=== PATIENT | female | born 1940 | race Two or more races ===

== ENCOUNTER → 2022-09-15 09:15 | Outpatient (BNVA) | payer MEDICARE, SELFPAY | PROVIDERS: PCP Family Medicine; Visit Provider Student in an Organized Health Care Education/Training Program | DX: M06.9 Rheumatoid arthritis, unspecified (principal); Z13.820 Encounter for screening for osteoporosis | CPT/HCPCS: 99202 ==

== ENCOUNTER → 2022-11-29 09:31 | Outpatient (BNVA) | payer MEDICARE, SELFPAY | PROVIDERS: PCP Family Medicine; Visit Provider Student in an Organized Health Care Education/Training Program | DX: M06.00 Rheumatoid arthritis without rheumatoid factor, unspecified site (principal); Z79.631 Long term (current) use of antimetabolite agent | CPT/HCPCS: 99212 ==

== ENCOUNTER 2023-02-14 10:59 | Outpatient (AMB) | payer MEDICARE, MEDICAID, SELFPAY ==
[2023-02-14 11:17] VITALS: BP 102/54; PULSE 62; TEMP 35.9; O2SAT 98
--- NOTE | 2023-02-14 11:17 | A.OFFVIS_ITS ---
Intake Vital Signs 02/14/23 11:17 Height 5 ft 7 in BMI Reason not done Patient refused/unable BP 102/54 L Blood Pressure Location Rt brachial Position Sitting Pulse 62 Pulse Source Pulse Oximeter Temp 96.6 F L Temp Source Skin Pulse Oximetry (%) 98 Comment pt states weight is 138-140lbs Intake Visit Reasons: RA Intake Note: Pt seen today for RA follow up. Not taking MTX for approx 3months she states she gets UTI's. Reports she was in the hospital for a week at [facility]. Neck and shoulders still sore General Foundry Worker Required: No Accompanied by: Self / Same As Patient Allergies aspirin Allergy (Intermediate, Verified 02/14/23 11:22) Hives Medication List - Last Reconciled 02/14/23 by Vinnie Purcell MD acetaminophen (Tylenol Extra Strength) 500 mg PO BID PRN amlodipine 5 mg PO DAILY atenolol 25 mg PO DAILY atorvastatin 40 mg PO DAILY calcitriol 0.25 mcg PO DAILY celecoxib (Celebrex) 100 mg PO BID cholecalciferol (vitamin D3) 25 mcg PO DAILY diclofenac sodium 1% grams topical QID fluticasone propionate 50 mcg/actuation sprays intranasal levothyroxine 50 mcg PO DAILY lisinopril 10 mg PO DAILY magnesium oxide 400 mg PO DAILY tizanidine 1 mg PO TID PRN vitamin B complex (B Complex-Vitamin B12 tablet) 1 tab PO DAILY HPI HPI Comments History of Present Illness Details 82-year-old female with seronegative RA returns for follow-up. Mentions that she stopped methotrexate about 2 months ago as she felt that she was having recurrent UTIs when she was taking it. She continues to have pain in her shoulders, hands. Initial history: 82-year-old female presents for rheumatoid arthritis evaluation. Her previous school bus driver/custodian left the practice. Patient states she was just discharged from [facility] due to UTI. 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 She has had bilateral knee replacements around 6 years ago. She also had bilateral hip replacements for years ago. Per patient and her daughter she had had multiple revisions of her right hip replacement and eventually the hardware was taken out. Per patient's daughter, the surgeon told them the bones are frail Today patient is complaining of bilateral shoulder pain and weakness as well as neck pain and bilateral jaw pain. She has bilateral jaw pain when she has to open her mouth to have a large bite. She takes Celebrex 100 mg Twice daily. She states that she does not like how she feels when she takes methotrexate. She took it for a few weeks and stopped and feels that the pain is worse when she stopped. From Dr. Cardenas's and Dr. Green notes: 81-year-old female with seronegative rheumatoid arthritis.?? Patient states she did not like the Enbrel as it caused her to have constipation.? She also did not like leflunomide.? She would like to go back on the methotrexate.?? Patient previously stated that she could not tolerate methotrexate.? She took it for 3 months.? She gained weight but she states today she can deal with the weight gain. She got over a UTI and she is on antibiotics.? Previous visit 11/01/2021? States she has plaque psoriasis.? Psoriasis is on and off.? Diagnosis was never confirmed by obstetrics nurse.? She states that her hairdresser told her that. Patient complains of pain in the neck.? This has been going on for years on and off.? Is getting worse it radiates to the shoulders mostly on the left side.? No numbness.? Occasional tingling? She used to be on methotrexate and Plaquenil as well as biologics.? She was f ollowing with Dr. Sosa norman. Patient had intense inflammatory finding when she 1st presented in summer, she also had profound weight loss treatment has been a challenge.?? Inadequate response to methotrexate and leflunomide. : Enbrel but he was stopped as she thought it caused diarrhea Humira for 10 weeks without subjective or objective improvement.? Started Xeljanz but stopped about 5 days, unclear why she did this She thinks Celebrex caused her hair to curl.? 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 Osteoporosis Rheumatoid arthritis Screening for viral disease Surgical History Hx of bilateral hip replacements Hx of total knee replacement Family History Father Myocardial infarct Social History Household Members: Children Household Members Other:: Son Alcohol intake: never Patient Tobacco Use Status: Never used Tobacco Review of Systems ENT Reports neck pain Resp Reports no additional complaints Musc Reports arthralgias, Reports neck pain and Reports stiffness Physical Exam Vital Signs: Last Vital Signs Temp 96.6 F L 02/14/23 11:17 Pulse 62 02/14/23 11:17 BP 102/54 L 02/14/23 11:17 Pulse Ox 98 02/14/23 11:17 Const General: cooperative, healthy appearing and comfortable Nutritional Appearance: average body habitus Orientation/consciousness: patient oriented x3 Limitations: wheelchair HEENT Head: Yes normocephalic and Yes atraumatic Mouth: moist mucous membranes Resp Effort & Inspection: normal respiratory effort and able to speak in complete sentences Neuro General: patient oriented x3 Extrem Other: Significantly limited wrist extension bilaterally Bilateral wrist swelling without tenderness No MCP tenderness or swelling bilaterally Negative MCP squeeze test bilaterally Osteoarthritic changes of both hands with prominent Heberden's nodes Normal range of motion of both elbows with no pain Significantly limited range of motion of both shoulders No knee, ankle or foot swelling warmth or tenderness bilaterally Assessment & Plan Assessment & Plan (1) Rheumatoid arthritis: Comment: Seronegative arthritis started 2014 was told she has PSO by chairperson anesthesiology, Never confirmed by obstetrics nurse knee synovial fluid inflammatory 2014, negative serology, elevated inflammatory markers Methotrexate and leflunomide ineffective Per patient Enbrel caused diarrhea and constipation Took Xeljanz for 5 days and stopped it on her own unclear why she did that Failed Humira MTX restarted at 12.5 mg daily 09/21 effective, stopped due to recurrent UTIs Code(s): M06.9 - Rheumatoid arthritis, unspecified Plan: This is an 82-year-old female with seronegative rheumatoid arthritis who presents for follow-up. Patient self discontinued methotrexate due to recurrent UTIs. Discussed risks and benefits of hydroxychloroquine. Patient mentions that she has history of macular degeneration and she has a follow-up appointment with her vision impaired teacher next month. Advised patient to follow-up with her vision impaired teacher and discuss the possibility of using hydroxychloroquine. Patient agreed to do so. If patient vision impaired teacher agrees to start hydroxychloroquine will plan to start hydroxychloroquine 300 mg daily Follow-up in 3 months Plan I spent 17 minutes reviewing patient's chart, evaluating patient, placing order s, counseling patient and documenting in the chart Orders: Referrals Ophthalmology Referral [id number] - Other long-term (current) drug therapy Coding Level of Care Code Est Pt Level 3 (98605) Diagnoses Rheumatoid arthritis M06.9
== END 2023-02-14 12:01 | disposition home or self-care (01) ==
PROVIDERS: PCP Family Medicine; Visit Provider Student in an Organized Health Care Education/Training Program
DX: M06.9 Rheumatoid arthritis, unspecified (principal)
CPT/HCPCS: 99213

== ENCOUNTER → 2023-02-14 10:59 | Outpatient (BNVA) | payer MEDICARE, MEDICAID, SELFPAY | PROVIDERS: PCP Family Medicine; Visit Provider Student in an Organized Health Care Education/Training Program | DX: M06.9 Rheumatoid arthritis, unspecified (principal) | CPT/HCPCS: 99212 ==

== ENCOUNTER 2023-05-02 10:49 | Outpatient (AMB) | payer MEDICARE, MEDICAID, SELFPAY ==
[2023-05-02 10:50] VITALS: BP 122/70; TEMP 36.2
--- NOTE | 2023-05-02 10:50 | MHC.OFFVIS ---
Intake Vital Signs 05/02/23 10:50 Height 5 ft 7 in BMI Reason not done Patient refused/unable BP 122/70 Blood Pressure Location Rt brachial Position Sitting Temp 97.2 F Temp Source Skin Comment pt in wheelchair Intake Visit Reasons: RA Intake Note: Pt seen today for RA follow up. 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 Roller Required: No Accompanied by: Self / Same As Patient Allergies aspirin Allergy (Intermediate, Verified 05/02/23 10:58) Hives Medication List - Last Reconciled 05/02/23 by Vinnie Purcell MD acetaminophen (Tylenol Extra Strength) 500 mg PO BID PRN amlodipine 5 mg PO DAILY atenolol 25 mg PO DAILY atorvastatin 40 mg PO DAILY calcitriol 0.25 mcg PO DAILY celecoxib (Celebrex) 100 mg PO BID cholecalciferol (vitamin D3) 25 mcg PO DAILY diclofenac sodium 1% grams topical QID fluticasone propionate 50 mcg/actuation sprays intranasal levothyroxine 50 mcg PO DAILY lisinopril 10 mg PO DAILY magnesium oxide 400 mg PO DAILY tizanidine 1 mg PO TID PRN vitamin B complex (B Complex-Vitamin B12 tablet) 1 tab PO DAILY HPI HPI Comments History of Present Illness Details 82-year-old female with seronegative RA returns for follow-up. Patient took minocycline for approximately 2 and half months without much improvement in her joint pain. She also developed a UTI. While taking it. She started methotrexate 5 tabs once weekly 5 weeks ago with improvement in her joint pain and swelling. Denied any recent UTIs. She would like to some physical therapy for her neck. Initial history: 82-year-old female presents for rheumatoid arthritis evaluation. Her previous sales communications manager left the practice. Patient states she was just discharged from [facility] due to UTI. 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 She has had bilateral knee replacements around 6 years ago. She also had bilateral hip replacements for years ago. Per patient and her daughter she had had multiple revisions of her right hip replacement and eventually the hardware was taken out. Per patient's daughter, the surgeon told them the bones are frail Today patient is complaining of bilateral shoulder pain and weakness as well as neck pain and bilateral jaw pain. She has bilateral jaw pain when she has to open her mouth to have a large bite. She takes Celebrex 100 mg Twice daily. She states that she does not like how she feels when she takes methotrexate. She took it for a few weeks and stopped and feels that the pain is worse when she stopped. From Dr. Cardenas's and Dr. Green notes: 81-year-old female with seronegative rheumatoid arthritis.?? Patient states she did not like the Enbrel as it caused her to have constipation.? She also did not like leflunomide.? She would like to go back on the methotrexate.?? Patient previously stated that she could not tolerate methotrexate.? She took it for 3 months.? She gained weight but she states today she can deal with the weight gain. She got over a UTI and she is on antibiotics.? Previous visit 11/01/2021? States she has plaque psoriasis.? Psoriasis is on and off.? Diagnosis was never confirmed by claims analyst.? She states that her hairdresser told her that. Patient complains of pain in the neck.? This has been going on for years on and off.? Is getting worse it radiates to the shoulders mostly on the left side.? No numbness.? Occasional tingling? She used to be on methotrexate and Plaquenil as well as biologics.? She was following with Dr. Sosa norman. Patient had intense inflammatory finding when she 1st presented in summer, she also had profound weight loss treatment has been a challenge.?? Inadequate response to methotrexate and leflunomide. : Enbrel but he was stopped as she thought it caused diarrhea Humira for 10 weeks without subjective or objective improvement.? Started Xeljanz but stopped about 5 days, unclear why she did this She thinks Celebrex caused her hair to curl.? Not taking Plaquenil ineffective [facility] Medical History Macular degeneration Osteoporosis Encounter for testing for latent tuberculosis infection Screening for viral disease On halfway drug therapy Inflammatory polyarthropathy Rheumatoid arthritis Surgical History Hx of total knee replacement Hx of bilateral hip replacements Family History Father Myocardial infarct Social History Household Members: Children Household Members Other:: Son Alcohol intake: never Patient Tobacco Use Status: Never used Tobacco Review of Systems Musc Denies arthralgias and Denies joint swelling Physical Exam Vital Signs: Last Vital Signs Temp 97.2 F 05/02/23 10:50 BP 122/70 05/02/23 10:50 Const General: cooperative, healthy appearing and comfortable Nutritional Appearance: average body habitus Orientation/consciousness: patient oriented x3 Limitations: wheelchair HEENT Head: Yes normocephalic and Yes atraumatic Mouth: moist mucous membranes Resp Effort & Inspection: normal respiratory effort and able to speak in complete sentences Neuro General: patient oriented x3 Extrem Other: No wrist swelling bilateral today Mild right wrist tenderness No MCP tenderness or swelling bilaterally Negative MCP squeeze test bilaterally Osteoarthritic changes of both hands with prominent Heberden's nodes Normal range of motion of both elbows with no pain Significantly limited range of motion of both shoulders No knee, ankle or foot swelling warmth or tenderness bilaterally Assessment & Plan Assessment & Plan (1) Rheumatoid arthritis: Comment: Seronegative arthritis started 2014 was told she has PSO by hair spinning machine operator, Never confirmed by claims analyst knee synovial fluid inflammatory 2014, negative serology, elevated inflammatory markers Methotrexate and leflunomide ineffective Per patient Enbrel caused diarrhea and constipation Took Xeljanz for 5 days and stopped it on her own unclear why she did that Failed Humira Mnocycline 12/22-02/21 not effective & stopped due to UTI MTX restarted at 12.5 mg daily 09/21 effective, stopped due to recurrent UTIs restarted 03/24 effective Code(s): M06.9 - Rheumatoid arthritis, unspecified Plan: This is an 82-year-old female with seronegative rheumatoid arthritis who presents for follow-up. Patient restarted methotrexate 12.5 mg weekly 5 weeks ago with improved joint pain and swelling. On exam today she has 1 tender joint. Advanced methotrexate to 20 mg once weekly split dose plus folic acid 1 mg daily Labs in 1 month. Follow-up in 3 months (2) Degenerative cervical disc: Code(s): M50.30 - Other cervical disc degeneration, unspecified cervical region Plan: Referred to PT (3) Immunization counseling: Code(s): Z71.85 - Encounter for immunization safety counseling Plan: Discussed ACR vaccination guidelines for all [place] with autoimmune rheumatic disease. Patient does want to get any vaccines. Advised patient to try to maintain social distancing as much as possible and wear a mask in crowded areas the coming few months as the number of respiratory infections is on the rise Plan I spent 26 minutes reviewing patient's chart, evaluating patient, placing orders, counseling patient and documenting in the chart Orders: Orders PT Evaluation and Treatment Today M50.30 - Other cervical disc degeneration, unspecified cervical region Complete Blood Count Auto Diff 1 Month M06.9 - Rheumatoid arthritis, unspecified Comprehensive Met. Panel 1 Month M06.9 - Rheumatoid arthritis, unspecified C Reactive Protein 1 Month M06.9 - Rheumatoid arthritis, unspecified Erythrocyte Sedimentation Rate 1 Month M06.9 - Rheumatoid arthritis, unspecified Medications: New folic acid 1 mg PO DAILY 90 tabs 1RF NS Refilled methotrexate sodium Take 4 tabs after supper on and 4 tabs after supper on Sunday 20 mg (8 x 2.5 mg) PO QWEEK 96 tabs 0RF Coding Level of Care Code Est Pt Level 4 (23062) Diagnoses Rheumatoid arthritis M06.9 Degenerative cervical disc M50.30 Immunization counseling Z71.85
== END 2023-05-02 11:20 | disposition home or self-care (01) ==
LOC: HO.RHE 10:49
PROVIDERS: PCP Family Medicine; Visit Provider Student in an Organized Health Care Education/Training Program
DX: M06.9 Rheumatoid arthritis, unspecified (principal); M50.30 Other cervical disc degeneration, unspecified cervical region; Z71.85 Encounter for immunization safety counseling
CPT/HCPCS: 99214

== ENCOUNTER → 2023-05-02 10:49 | Outpatient (BNVA) | payer MEDICARE, MEDICAID, SELFPAY | PROVIDERS: PCP Family Medicine; Visit Provider Student in an Organized Health Care Education/Training Program | DX: M06.00 Rheumatoid arthritis without rheumatoid factor, unspecified site (principal); M50.30 Other cervical disc degeneration, unspecified cervical region; Z71.85 Encounter for immunization safety counseling | CPT/HCPCS: 99212 ==

== ENCOUNTER 2023-09-19 10:39 | Outpatient (AMB) | payer MEDICARE, MEDICAID, SELFPAY ==
--- NOTE | 2023-09-19 10:44 | MHC.OFFVIS ---
Intake Vital Signs 09/19/23 10:45 Height 5 ft 7 in BMI Reason not done Patient refused/unable BP 124/80 Blood Pressure Location Rt brachial Position Sitting Pulse 54 Pulse Source Pulse Oximeter Temp 97 F Temp Source Skin Pulse Oximetry (%) 97 Oxygen Delivery Method Room Air Comment pt on wheelchair Intake Visit Reasons: RA Intake Note: Patient last seen 05/02/23 presents today for follow up and test results. Reports not taking MTX for about 3 mo due to recurrent UTI's. Now taking Turmeric. 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 Required: No Accompanied by: Self / Same As Patient Allergies aspirin Allergy (Intermediate, Verified 09/19/23 10:44) Hives Medication List - Last Reconciled 09/19/23 by Vinnie Purcell MD acetaminophen (Tylenol Extra Strength) 500 mg PO BID PRN amlodipine 5 mg PO DAILY atenolol 25 mg PO DAILY atorvastatin 40 mg PO DAILY calcitriol 0.25 mcg PO DAILY celecoxib (Celebrex) 100 mg PO BID cholecalciferol (vitamin D3) 25 mcg PO DAILY fluticasone propionate 50 mcg/actuation sprays intranasal folic acid 1 mg PO DAILY NS levothyroxine 50 mcg PO DAILY lisinopril 10 mg PO DAILY magnesium oxide 400 mg PO DAILY turmeric mg PO ONCE vitamin B complex (B Complex-Vitamin B12 tablet) 1 tab PO DAILY HPI HPI Comments History of Present Illness Details 83-year-old female with seronegative RA returns for follow-up. Patient stated that she was having frequent UTIs while taking methotrexate so she discontinued it for 2 or 3 months now. She has been taking turmeric regularly. She does not know the exact dose. She believes that it helps. States that she is having improved left shoulder range of motion. She is doing physical therapy for her neck. She stated that she noticed a lesion on the outer aspect of her left, it had a scab, the scab fell off, she is planning to see a braille transcriber Initial history: 82-year-old female presents for rheumatoid arthritis evaluation. 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 Patient states she was just discharged from [facility] due to UTI. 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 She has had bilateral knee replacements around 6 years ago. She also had bilateral hip replacements for years ago. Per patient and her daughter she had had multiple revisions of her right hip replacement and eventually the hardware was taken out. Per patient's daughter, the surgeon told them the bones are frail Today patient is complaining of bilateral shoulder pain and weakness as well as neck pain and bilateral jaw pain. She has bilateral jaw pain when she has to open her mouth to have a large bite. She takes Celebrex 100 mg Twice daily. She states that she does not like how she feels when she takes methotrexate. She took it for a few weeks and stopped and feels that the pain is worse when she stopped. From Dr. Cardenas's and Dr. Green notes: 81-year-old female with seronegative rheumatoid arthritis.?? Patient states she did not like the Enbrel as it caused her to have constipation.? She also did not like leflunomide.? She would like to go back on the methotrexate.?? Patient previously stated that she could not tolerate methotrexate.? She took it for 3 months.? She gained weight but she states today she can deal with the weight gain. She got over a UTI and she is on antibiotics.? Previous visit 11/01/2021? States she has plaque psoriasis.? Psoriasis is on and off.? Diagnosis was never confirmed by braille transcriber.? She states that her hairdresser told her that. Patient complains of pain in the neck.? This has been going on for years on and off.? Is getting worse it radiates to the shoulders mostly on the left side.? No numbness.? Occasional tingling? She used to be on methotrexate and Plaquenil as well as biologics.? She was following with Dr. Sosa norman. Patient had intense inflammatory finding when she 1st presented in summer, she also had profound weight loss treatment has been a challenge.?? Inadequate response to methotrexate and leflunomide. : Enbrel but he was stopped as she thought it caused diarrhea Humira for 10 weeks without subjective or objective improvement.? Started Xeljanz but stopped about 5 days, unclear why she did this She thinks Celebrex caused her hair to curl.? Not taking Plaquenil ineffective [facility] Medical History Macular degeneration Osteoporosis Screening for viral disease On care home drug therapy Inflammatory polyarthropathy Rheumatoid arthritis Surgical History Hx of total knee replacement Hx of bilateral hip replacements Family History Father Myocardial infarct Social History Household Members: Children Household Members Other:: Son Alcohol intake: never Patient Tobacco Use Status: Never used Tobacco Review of Systems ENT Reports neck pain Musc Denies arthralgias, Denies joint swelling, Reports limited range of motion and Reports neck pain Skin/Breast Reports lesions Physical Exam Vital Signs: Last Vital Signs Temp 97 F 09/19/23 10:45 Pulse 54 09/19/23 10:45 BP 124/80 09/19/23 10:45 Pulse Ox 97 09/19/23 10:45 Oxygen Delivery Method Room Air 09/19/23 10:45 Const General: cooperative, healthy appearing and comfortable Nutritional Appearance: average body habitus Orientation/consciousness: patient oriented x3 Limitations: wheelchair HEENT Head: Yes normocephalic and Yes atraumatic Mouth: moist mucous membranes Resp Effort & Inspection: normal respiratory effort and able to speak in complete sentences Neuro General: patient oriented x3 Extrem Other: No wrist swelling bilateral today Mild right wrist tenderness No MCP tenderness or swelling bilaterally Negative MCP squeeze test bilaterally Osteoarthritic changes of both hands with prominent Heberden's nodes Normal range of motion of both elbows with no pain Significantly limited range of motion of both shoulders No knee, ankle or foot swelling warmth or tenderness bilaterally Assessment & Plan Assessment & Plan (1) Rheumatoid arthritis: Comment: Seronegative arthritis started 2014 was told she has PSO by hairmasters manager, Never confirmed by braille transcriber knee synovial fluid inflammatory 2014, negative serology, elevated inflammatory markers Methotrexate and leflunomide ineffective Per patient Enbrel caused diarrhea and constipation Took Xeljanz for 5 days and stopped it on her own unclear why she did that Failed Humira Mnocycline 12/22-02/21 not effective & stopped due to UTI MTX restarted at 12.5 mg daily 09/21 effective, stopped due to recurrent UTIs restarted 03/24 effective, DC 07/2023 due to frequent UTI Code(s): M06.9 - Rheumatoid arthritis, unspecified Plan: This is an 83-year-old female with seronegative rheumatoid arthritis who presents for follow-up. Patient self discontinued methotrexate due to frequent UTIs, 2-3 months ago. He states that now she has less frequent UTIs. She has been taking turmeric, she does not know the exact dose but she feels that it is helping. I explained to patient that I do not believe turmeric would be adequate for her rheumatoid arthritis and she will need a DMARD. Patient does not want any DMARDs today. Advised patient to take tumeric [id number] mg per day to be effective Follow-up in 6 months (2) Degenerative cervical disc: Code(s): M50.30 - Other cervical disc degeneration, unspecified cervical region Plan: Continue with PT (3) Skin lesion of left leg: Code(s): L98.9 - Disorder of the skin and subcutaneous tissue, unspecified Plan: Follow-up with braille transcriber or PCP Plan I spent 26 minutes reviewing patient's chart, evaluating patient, counseling patient and documenting in the chart Coding Level of Care Code Est Pt Level 4 (50444) Diagnoses Rheumatoid arthritis M06.9 Degenerative cervical disc M50.30 Skin lesion of left leg L98.9
[2023-09-19 10:45] VITALS: BP 124/80; PULSE 54; TEMP 36.1; O2SAT 97
== END 2023-09-19 11:26 | disposition home or self-care (01) ==
LOC: HO.RHE 10:39
PROVIDERS: PCP Family Medicine; Visit Provider Student in an Organized Health Care Education/Training Program
DX: M06.9 Rheumatoid arthritis, unspecified (principal); M50.30 Other cervical disc degeneration, unspecified cervical region; L98.9 Disorder of the skin and subcutaneous tissue, unspecified
CPT/HCPCS: 99214

== ENCOUNTER → 2023-09-19 10:39 | Outpatient (BNVA) | payer MEDICARE, MEDICAID, SELFPAY | PROVIDERS: PCP Family Medicine; Visit Provider Student in an Organized Health Care Education/Training Program | DX: M06.9 Rheumatoid arthritis, unspecified (principal); M50.30 Other cervical disc degeneration, unspecified cervical region; L98.9 Disorder of the skin and subcutaneous tissue, unspecified | CPT/HCPCS: 99212 ==